=== PATIENT | male | born 1995 | race Caucasian/White ===

== ENCOUNTER 2017-07-19 16:47 | Emergency (ER) | payer BC ==
[~2017-07-19] VITALS: Ht 172.7 cm; Wt 63.6 kg
[2017-07-19 16:49] VITALS: TEMP 97.2
[2017-07-19 17:50] LABS: AMPHETAMINE URINE NEGATIVE; BARBITURATES URINE NEGATIVE; BENZODIAZEPINES URINE NEGATIVE; BUPRENORPHINE URINE NEGATIVE; METHADONE URINE NEGATIVE; OPIATES URINE NEGATIVE; OXYCODONE URINE NEGATIVE; PHENCYCLIDINE URINE NEGATIVE; PROPOXYPHENE URINE NEGATIVE; THC CANNABINOIDS URINE POSITIVE; TRICYCLIC ANTIDEPRESS URINE NEGATIVE
[2017-07-19 17:52] LABS: BASO # 0.1 (0.0-0.2); BASO % 1.1 % (0.0-2.0); EOS # 0.3 (0.0-0.7); EOS % 3.7 % (0-4.0); GRAN # 4.6 (1.4-6.5); HEMATOCRIT 47.6 % (36.0-47.0); HEMOGLOBIN 16.9 g/dl (12.5-16.1); LYMPH # 2.3 (1.2-3.4); LYMPH % 28.9 % (20.0-51.0); MEAN CELL VOLUME 92 fl (80.0-95.0); MEAN CORPUSCULAR HEMOGLOBIN 33 pg (26.0-32.0); MEAN CORPUSCULAR HGB CONC 36 g/dl (33.0-37.0); MEAN PLATELET VOLUME 10.2 fl (7.4-10.4); MONO # 0.7 (0.1-0.6); MONO % 9.2 % (1.7-9.3); PLATELET COUNT 219 K/mm3 (130-400); RED BLOOD COUNT 5.17 M/mm3 (4.20-5.60)
[2017-07-19 18:02] LABS: ADJUSTED CALCIUM 8.9 mg/dL (8.4-10.2); ALANINE AMINOTRANSFERASE 44 U/L (21-72); ALBUMIN 4.5 gm/dL (3.5-5.0); ALKALINE PHOSPHATASE 76 U/L (50-136); ANION GAP 12 mmol/L (7-16); BILIRUBIN,TOTAL 1.2 mg/dL (0.0-1.0); BLOOD UREA NITROGEN 16 mg/dL (9-20); CALCIUM 9.3 mg/dL (8.4-10.2); CARBON DIOXIDE 27 mmol/L (22-30); CHLORIDE 103 mmol/L (98-107); CREATININE, serum 0.99 mg/dL (0.66-1.25); GLUCOSE 82 mg/dL (74-106); POTASSIUM 3.5 mmol/L (3.4-5.0); SODIUM 142 mmol/L (137-145); TOTAL PROTEIN 7.3 gm/dL (6.4-8.2)
[2017-07-19 18:08] LABS: ACETAMINOPHEN < 10 ug/mL (10-30); ALCOHOL(ethanol),MEDICAL < 10 mg/dL; SALICYLATE < 1.0 mg/dL
[2017-07-19] MEDS ORDERED: ZYPREXA 5MG5 MG PO ×2 (20:51)
[2017-07-19 21:15] VITALS: BP 127/80
[2017-07-20 01:01] VITALS: PULSE 58
== END 2017-07-20 01:04 | disposition home or self-care (01) ==
LOC: COL.ER 16:47
PROVIDERS: Emergency Medicine
DX: T39.312A Poisoning by propionic acid derivatives, intentional self-harm, initial encounter (principal); F29 Unspecified psychosis not due to a substance or known physiological condition
CPT/HCPCS: J2405; J7030